=== PATIENT | male | born 1970 | race Hispanic/Latino ===

== ENCOUNTER 2020-03-07 14:34 | Outpatient (CLI) | payer BC ==
--- NOTE | 2020-03-07 14:49 | RAD ---
SUPINE ABDOMEN: HISTORY: Abdominal pain. FINDINGS: Bowel gas pattern unremarkable. Scattered stool and gas throughout colon. Small bowel gas pattern i s normal. No mass or abnormal calcification. Post cholecystectomy clips are noted overlying the rig ht upper quadrant. Osseous structures unremarkable. IMPRESSION: Unremarkable exam. POS: OFF
== END 2020-03-07 14:35 | disposition home or self-care (01) ==
LOC: RAD-FRANK 14:34
PROVIDERS: ATTEND Nurse Practitioner Family
DX: R10.9 Unspecified abdominal pain (principal)
CPT/HCPCS: 74018

== ENCOUNTER 2020-03-15 08:12 | Outpatient (CLI) | payer BC ==
--- NOTE | 2020-03-15 08:50 | ULT ---
ULTRASOUND ABDOMEN: Date: 03/15/2020 HISTORY: Abdominal pain. FINDINGS: The liver demonstrates increased echogenicity consistent with fatty infiltration without focal mass o r abnormal biliary ductal dilatation. The patient is post cholecystectomy. The pancreas, spleen, kidn eys, and visualized portions of the aorta and IVC appear normal. No free fluid is seen. The common du ct measures 5.0 mm in diameter. IMPRESSION: 1. Fatty liver. 2. Status post cholecystectomy. POS: OFF
== END 2020-03-15 08:13 | disposition home or self-care (01) ==
LOC: BICULT 08:12
PROVIDERS: ATTEND Nurse Practitioner Family
DX: R10.9 Unspecified abdominal pain (principal); K76.0 Fatty (change of) liver, not elsewhere classified; Z90.49 Acquired absence of other specified parts of digestive tract
CPT/HCPCS: 93975

== ENCOUNTER 2020-05-11 08:09 | Outpatient (CLI) | payer BC ==
[2020-05-11] MEDS ORDERED: Iopamidol-370 76% 500 ML 1 ML ONE (14:35)
== END 2020-05-11 08:10 | disposition home or self-care (01) ==
LOC: BICCT 08:09
PROVIDERS: ATTEND Internal Medicine Gastroenterology
DX: K30 Functional dyspepsia (principal); R93.2 Abnormal findings on diagnostic imaging of liver and biliary tract; K76.0 Fatty (change of) liver, not elsewhere classified; Z90.49 Acquired absence of other specified parts of digestive tract
CPT/HCPCS: 74177; Q9967